=== PATIENT | male | born 1985 | race African-American/Black ===

== ENCOUNTER 2018-01-16 06:04 | Emergency (ER) | payer MEDICARE, MEDICAID ==
[~2018-01-16] VITALS: Ht 165.1 cm; Wt 57.0 kg
[2018-01-16] MEDS ORDERED: KETOROLAC 30MG/ML VIAL IV STA (06:25)
[2018-01-16] MEDS ORDERED: ONDANSETRON HCL 4MG/2ML VIAL IV STA (06:25)
[2018-01-16] MEDS ORDERED: SODIUM CHLORIDE 0.9% 1,000 ML IV ONE (06:25)
[2018-01-16 06:51] LABS: BASOPHILS % 1.3 % (0.0-2.0); HEMOGLOBIN. 14.6 g/dL (14.0-18.0); LYMPHOCYTES % 23.9 % (20.0-50.0); MEAN CORPUSCULAR HEMOGLOBIN 31.6 pg (28.0-32.0); MEAN CORPUSCULAR VOLUME 90.7 fL (80.0-94.0); MEAN PLATELET VOLUME 7.5 fl (7.4-10.4); MONOCYTES % 9.6 % (2.0-8.0); NEUTROPHILS % 64.2 % (40.0-76.0); PLATELET 239 x1000/uL (130-400); RED BLOOD CELL COUNT 4.63 mill/uL (4.7-6.1); RED CELL DISTRIBUTION WIDTH 14.4 % (11.6-14.6)
[2018-01-16 06:57] LABS: CHLORIDE 106 mEq/L (98-107)
[2018-01-16 07:00] LABS: PROTHROMBIN TIME 10.4 sec (9.4-11.6)
[2018-01-16 08:37] LABS: CLARITY URINE CLOUDY (CLEAR); COLOR URINE YELLOW (YELLOW); KETONES URINE NEGATIVE (NEGATIVE); LEUKOCYTE ESTERASE URINE 3+ (NEGATIVE); NITRITE URINE NEGATIVE (NEGATIVE); OCCULT BLOOD URINE 1+ (NEGATIVE); PH URINE 6.5 (4.5-8.0); PROTEIN URINE NEGATIVE (NEGATIVE)
[2018-01-16] MEDS ORDERED: CEFTRIAXONE SODIUM 250 MG/VIAL IM ONE (09:15)
[2018-01-16 09:28] VITALS: BP 108/61
== END 2018-01-16 09:36 | disposition home or self-care (01) ==
LOC: ER 06:11
DX: N45.2 Orchitis (principal); N39.0 Urinary tract infection, site not specified; R74.8 Abnormal levels of other serum enzymes; F17.200 Nicotine dependence, unspecified, uncomplicated; F12.10 Cannabis abuse, uncomplicated; Z98.890 Other specified postprocedural states
CPT/HCPCS: 36415; 76870; 80053; 81003; 83690; 85025; 85610; 87086; 93976; 96374; 96375; 99285; J1885; J2405; J7030

== ENCOUNTER 2018-02-14 03:26 | Emergency (ER) | payer MEDICARE, MEDICAID ==
[~2018-02-14] VITALS: Ht 165.1 cm; Wt 61.0 kg
[2018-02-14 03:35] VITALS: BP 143/81
== END 2018-02-14 05:40 | disposition left against medical advice (07) ==
LOC: ER 03:26
DX: N48.89 Other specified disorders of penis (principal); M41.9 Scoliosis, unspecified; F17.200 Nicotine dependence, unspecified, uncomplicated; F12.10 Cannabis abuse, uncomplicated; Z53.21 Procedure and treatment not carried out due to patient leaving prior to being seen by health care provider

== ENCOUNTER 2019-01-21 14:45 | Emergency (ER) | payer MEDICARE, MEDICAID, OTHER ==
[~2019-01-21] VITALS: Ht 177.8 cm; Wt 68.0 kg
[2019-01-21] MEDS ORDERED: ACETAMINOPHEN 650MG/20.3ML UDC PO ONE (15:45)
[2019-01-21] MEDS ORDERED: HYDROCODONE/ACETAMINOPHEN 5/325MG TABLET PO PRN (18:00)
[2019-01-21] MEDS ORDERED: SODIUM CHLORIDE 0.9% 1,000 ML IV ONE (21:18)
[2019-01-21] MEDS ORDERED: MORPHINE SULFATE 4 MG/ML CPJ (NOT FOR IM USE) IV STA (21:18)
[2019-01-21] MEDS ORDERED: ONDANSETRON HCL 4MG/2ML INJ IV STA (21:18)
[2019-01-21 23:04] LABS: HEMATOCRIT. 36.8 % (42.0-52.0); HEMOGLOBIN. 12.7 g/dL (14.0-18.0); MEAN CORPUSCULAR HEMOGLOBIN 32.2 pg (28.0-32.0); MEAN CORPUSCULAR VOLUME 93.3 fL (80.0-94.0); PLATELET 192 x1000/uL (130-400); RED BLOOD CELL COUNT 3.94 mill/uL (4.7-6.1); RED CELL DISTRIBUTION WIDTH 13.8 % (11.6-14.6)
[2019-01-21 23:08] LABS: CHLORIDE 111 mEq/L (98-107)
[2019-01-21 23:25] LABS: PLATELET ESTIMATE NORMAL
[2019-01-22] MEDS ORDERED: HYDROCODONE/ACETAMINOPHEN 5/325MG TABLET PO PRN (00:15)
[2019-01-22 00:35] VITALS: BP 126/74
== END 2019-01-22 00:33 | disposition home or self-care (01) ==
LOC: ER 14:45
DX: S82.392A Other fracture of lower end of left tibia, initial encounter for closed fracture (principal); S82.492A Other fracture of shaft of left fibula, initial encounter for closed fracture; F12.10 Cannabis abuse, uncomplicated; V03.00XA Pedestrian on foot injured in collision with car, pick-up truck or van in nontraffic accident, initial encounter; Y93.89 Activity, other specified; Y92.89 Other specified places as the place of occurrence of the external cause
CPT/HCPCS: 36415; 71045; 72100; 72131; 73560; 73590; 80053; 85025; 93005; 96374; 96375; 99284; J2270; J2405; J7030; L1830

== ENCOUNTER 2019-02-25 07:25 | Emergency (ER) | payer MEDICARE, MEDICAID ==
[~2019-02-25] VITALS: Ht 165.1 cm; Wt 65.0 kg
[2019-02-25] MEDS ORDERED: HYDROCODONE/ACETAMINOPHEN 5/325MG TABLET PO ONE (10:45)
[2019-02-25 10:48] VITALS: BP 114/84
== END 2019-02-25 13:01 | disposition home or self-care (01) ==
LOC: ER 07:25
DX: S52.612A Displaced fracture of left ulna styloid process, initial encounter for closed fracture (principal); S20.212A Contusion of left front wall of thorax, initial encounter; V43.52XA Car driver injured in collision with other type car in traffic accident, initial encounter; Y93.89 Activity, other specified; Y92.89 Other specified places as the place of occurrence of the external cause; Y99.8 Other external cause status
CPT/HCPCS: 29125; 71045; 73100; 93005; 99283

== ENCOUNTER 2024-06-04 22:09 | Emergency (ER) | payer MEDICARE, MEDICAID ==
[~2024-06-04] VITALS: Ht 165.1 cm; Wt 60.7 kg
[2024-06-04 22:26] VITALS: TEMP 98.7; O2SAT 98
[2024-06-05] MEDS: TETANUS, DIPHTHERIA, PERTUSSIS VAC/PF 0.5ML (>10YR OLD) IM ONE (00:18)
[2024-06-05] MEDS: HYDROCODONE/ACETAMINOPHEN 5/325MG TABLET PO ONE (00:19)
[2024-06-05] MEDS ORDERED: BO1 TP (01:23)
[2024-06-05] MEDS ORDERED: HYDR-4001 MT (01:23)
[2024-06-05] MEDS ORDERED: IBUP-2029 MT (01:23)
[2024-06-05 01:39] VITALS: BP 124/80; PULSE 89; RESP 16; O2SAT 98
== END 2024-06-05 01:42 | disposition home or self-care (01) ==
LOC: ER 22:09
DX: S80.01XA Contusion of right knee, initial encounter (principal); S80.02XA Contusion of left knee, initial encounter; W19.XXXA Unspecified fall, initial encounter; Y93.89 Activity, other specified; Y92.89 Other specified places as the place of occurrence of the external cause; Y99.8 Other external cause status
CPT/HCPCS: 73562; 90471; 90715; 99283

== ENCOUNTER 2024-07-17 05:03 | Emergency (ER) | payer MEDICARE, MEDICAID ==
[~2024-07-17] VITALS: Ht 165.1 cm; Wt 59.0 kg
[~2024-07-17 05:03] MED LIST: BO1 TP; HYDR-4001 MT; IBUP-2029 MT
[2024-07-17 05:25] VITALS: O2SAT 99
[2024-07-17 05:30] VITALS: BP 124/84; PULSE 98; RESP 18; TEMP 98.8; O2SAT 100
[2024-07-17] MEDS ORDERED: TETANUS, DIPHTHERIA, PERTUSSIS VAC/PF 0.5ML (>10YR OLD) IM ONE (06:00)
[2024-07-17] MEDS: CEFAZOLIN 1000MG PREMIX 50 ML IV ONE (06:00)
== END 2024-07-17 10:22 | disposition left against medical advice (07) ==
LOC: ER 05:03
DX: S01.81XA Laceration without foreign body of other part of head, initial encounter (principal); X58.XXXA Exposure to other specified factors, initial encounter; Y93.89 Activity, other specified; Y92.89 Other specified places as the place of occurrence of the external cause; Y99.8 Other external cause status
CPT/HCPCS: 99284; 96365; J0690

== ENCOUNTER 2024-12-27 19:37 | Emergency (ER) | payer OTHER, MEDICARE, MEDICAID ==
[~2024-12-27] VITALS: Ht 175.3 cm; Wt 71.0 kg
[2024-12-27 19:42] VITALS: BP 136/70; PULSE 96; RESP 18; TEMP 37.1; O2SAT 99
== END 2024-12-27 20:00 | disposition home or self-care (01) ==
LOC: ER 19:37
DX: R06.02 Shortness of breath (principal); R03.0 Elevated blood-pressure reading, without diagnosis of hypertension; Z00.00 Encounter for general adult medical examination without abnormal findings; Z79.899 Other long term (current) drug therapy
CPT/HCPCS: 99283

== ENCOUNTER 2025-01-06 20:36 | Emergency (ER) | payer MEDICARE, MEDICAID ==
[~2025-01-06] VITALS: Ht 167.6 cm; Wt 60.0 kg
[2025-01-06 21:17] VITALS: O2SAT 98
[2025-01-06] MEDS: BACITRACIN ZINC OINT UDPKT TOP ONE (22:00)
[2025-01-06] MEDS: IBUPROFEN 400MG TABLET PO ONE (22:10)
[2025-01-06 22:11] VITALS: BP 108/70; PULSE 97; RESP 16; TEMP 36.6; O2SAT 99
[2025-01-06] MEDS ORDERED: BO1 TP (22:17)
== END 2025-01-06 22:31 | disposition home or self-care (01) ==
LOC: ER 20:36
DX: M79.644 Pain in right finger(s) (principal); Z79.899 Other long term (current) drug therapy
CPT/HCPCS: 99282

== ENCOUNTER 2025-01-09 04:40 | Emergency (ER) | payer MEDICARE, MEDICAID ==
[~2025-01-09] VITALS: Ht 165.1 cm; Wt 56.0 kg
[2025-01-09 04:47] VITALS: RESP 18; O2SAT 98
[2025-01-09] MEDS: LIDOCAINE HCL/PF 1% 10 MG/ML 5ML VIAL INFIL ONE (05:45)
[2025-01-09] MEDS: BACITRACIN ZINC OINT UDPKT TOP ONE (05:45)
[2025-01-09] MEDS ORDERED: AMOX1TAB16 MT (06:13)
[2025-01-09 06:45] VITALS: BP 116/75; PULSE 82; TEMP 36.7; O2SAT 99
== END 2025-01-09 06:45 | disposition home or self-care (01) ==
LOC: ER 04:40
DX: L03.011 Cellulitis of right finger (principal); Z79.899 Other long term (current) drug therapy
CPT/HCPCS: 99283; 10060; J2003

== ENCOUNTER 2025-07-22 17:46 | Emergency (ER) | payer MEDICAID, MEDICARE, OTHER ==
[~2025-07-22] VITALS: Ht 177.8 cm; Wt 70.0 kg
[~2025-07-22 17:46] MED LIST changes: +AMOX1TAB16 MT; +IBUP-1455 MT; -IBUP-2029 MT
[2025-07-22 17:51] VITALS: O2SAT 97
[2025-07-22] MEDS: KETOROLAC 30MG/ML VIAL IM ONE (18:40)
[2025-07-22 18:57] VITALS: BP 115/83; PULSE 68; RESP 18; TEMP 36.8; O2SAT 98
== END 2025-07-22 19:07 ==
LOC: ER 17:46
DX: M54.50 Low back pain, unspecified (principal); Z79.899 Other long term (current) drug therapy; Z02.89 Encounter for other administrative examinations
CPT/HCPCS: 96372; 99283; J1885; Z7610